=== PATIENT | male | born 1960 | race Hispanic/Latino ===

== ENCOUNTER 2022-08-19 14:05 | Emergency (ER) | payer OTHER, SELFPAY ==
[2022-08-19] MEDS ORDERED: METHYLPREDNISOLONE 125 MG INJ ONE (14:39)
[2022-08-19] MEDS ORDERED: NA CHLORIDE 0.9% 1,000 ML ONE (14:39)
[2022-08-19] MEDS ORDERED: FLUORESCEIN SODIUM 1 MG/WRAP ONE (15:24)
[2022-08-19] MEDS ORDERED: TETRACAINE HCL 0.5% 4ML OPTH ONE (15:25)
--- NOTE | 2022-08-19 15:49 | ER ---
Nurse's Notes [facility] Name: Joe Flores Age: 61 yrs Sex: Male : 1960 Arrival Date: 08/19/2022 Time: 14:05 Bed 18 Private MD: Desmond Butler Diagnosis: Conjunctival hemorrhage, right eye Presentation: 08/19 14:34 Chief complaint: Patient states: right eye redness. Pt states that he poked his eye cm10 with a tree branch Friday. Pt denies any blurred vision to that eye. Coronavirus screen: Vaccine status: Patient reports receiving the 2nd dose of the covid vaccine. Ebola Screen: No symptoms or risks identified at this time. Initial Sepsis Screen: Does the patient meet any 2 criteria? No. Patient's initial sepsis screen is negative. Does the patient have a suspected source of infection? No. Patient's initial sepsis screen is negative. Risk Assessment: Do you want to hurt yourself or someone else? Patient reports no desire to harm self or others. Onset of symptoms was August 19, 2022. 14:34 Method Of Arrival: Ambulatory 10 14:34 Acuity: EARNESTINE 4 cm10 Triage Assessment: 15:00 General: Appears in no apparent distress. uncomfortable, Behavior is calm, cooperative, eh3 appropriate for age. Pain: Complains of pain in right eye. Neuro: Level of Consciousness is awake, alert, obeys commands, Oriented to person, place, time, situation. Cardiovascular: Capillary refill < 3 seconds Patient's skin is warm and dry. Respiratory: Airway is patent Respiratory effort is even, unlabored, Respiratory pattern is regular, symmetrical. GI: Abdomen is round non-distended. Derm: Skin is intact, is healthy with good turgor. Musculoskeletal: Circulation, motion, and sensation intact. Historical: - Allergies: 14:36 No Known Allergies; cm10 - Home Meds: 14:36 None [Active]; cm10 - PMHx: 14:36 None; cm10 - PSHx: 14:36 None; cm10 - Immunization history:: Adult Immunizations unknown. - Social history:: Smoking status: Patient denies any tobacco usage or history of. Screenin:02 [facility] ED Fall Risk Assessment (Adult) Score/Fall Risk Level 0 - 2 = Low Risk. Abuse eh3 screen: Denies threats or abuse. Denies injuries from another. Nutritional screening: No deficits noted. Tuberculosis screening: No symptoms or risk factors identified. Vital Signs: 14:34 BP 118 / 72; Pulse 67; Resp 16; Temp 97.7(TE); Pulse Ox 99% ; Weight 79.83 kg; Height 5 cm10 ft. 3 in. ; Pain 0/10; 14:34 Body Mass Index 31.18 (79.83 kg, 160.02 cm) cm10 14:34 Pain Scale: Adult cm10 ED Course: 14:08 Patient arrived in ED. mr 14:08 Desmond Butler DO is Private Physician. mr 14:15 Angelica Hart [facility]C [facility] sb4 14:15 Sahil Covington MD is Attending Physician. sb4 14:36 Triage completed. cm10 14:36 Arm band placed on Patient placed. cm10 15:00 Patient has correct armband on for positive identification. Provided Education on: N/A. eh3 15:02 Liyah Gasca RN is Primary Nurse. eh3 15:48 Alexandro Santa MD is Referral Physician. sb4 16:03 No provider procedures requiring assistance completed. Patient did not have IV access eh3 during this emergency room visit. Administered Medications: 15:02 Drug: Tetracaine Ophthalmic Drops 0.5 % 1 drops Route: Ophthalmic; Site: right eye; eh3 16:02 Follow up: Response: No adverse reaction eh3 15:02 Drug: Fluorescein Ophthalmic Strip 1 strip Route: Ophthalmic; Site: right eye; eh3 16:02 Follow up: Response: No adverse reaction eh3 Medication: 16:03 VIS not applicable for this client. eh3 Outcome: 15:48 Discharge ordered by . sb4 16:04 Discharged to home ambulatory, with family. eh3 16:04 Condition: stable 16:04 Discharge instructions given to patient, family, Instructed on discharge instructions, follow up and referral plans. medication usage, Demonstrated understanding of instructions, follow-up care, medications, Prescriptions given X 1. 16:04 Patient left the ED. eh3 Signatures: Sendy Newman mr Liyah Gasca, REGULO RN eh3 Angelica Hart PA-C PA-C sb4 Connie Flores RN RN 10
--- NOTE | 2022-08-19 15:49 | EDPHYS ---
Physician Documentation [facility] Name: Joe Flores Age: 61 yrs Sex: Male : 1960 Arrival Date: 08/19/2022 Time: 14:05 Bed 18 Private MD: Desmond Butler ED Physician Sahil Covington HPI: 08/19 15:52 This 61 yrs old Male presents to ER via Ambulatory with complaints of Redness sb4 of Eye. 15:52 The patient is experiencing redness, tearing, The patient sustained tree branch hit his sb4 right eye, to the right eye, caused by tree branch. Onset: The symptoms/episode began/occurred 2 day(s) ago. Associated signs and symptoms: Pertinent positives: None. Pertinent negatives: blurry vision, pain, dizziness. Patient does not utilize any form of vision correction. . Historical: - Allergies: 14:36 No Known Allergies; cm10 - Home Meds: 14:36 None [Active]; cm10 - PMHx: 14:36 None; cm10 - PSHx: 14:36 None; cm10 - Immunization history:: Adult Immunizations unknown. - Social history:: Smoking status: Patient denies any tobacco usage or history of. ROS: 15:52 Constitutional: Negative for fever, chills, and weight loss. sb4 15:52 Eyes: Positive for redness, tearing, Negative for blurry vision, discharge, foreign body sensation, itching, pain, photophobia, swelling, vision loss, visual disturbance. 15:52 All other systems are negative. Exam: 15:52 Visual Acuity: Visual acuity is within normal limits. sb4 15:52 Constitutional: This is a well developed, well nourished patient who is awake, alert, and in no acute distress. Skin: Warm, dry with normal turgor. Normal color with no rashes, no lesions, and no evidence of cellulitis. 15:52 Eyes: Periorbital structures: appear normal, Pupils: equal, round, and reactive to light and accomodation, Extraocular movements: intact throughout, Conjunctiva: subconjunctival hemorrhage(s), seen in the right eye, Corneas: are normal, no evidence of abrasion, no foreign body, Sclera: no appreciated abnormality, Anterior chamber: normal, no hyphema, on appreciated narrow angle closure, Lids and lashes: appear normal, Visual ohara: are intact. Vital Signs: 14:34 BP 118 / 72; Pulse 67; Resp 16; Temp 97.7(TE); Pulse Ox 99% ; Weight 79.83 kg; Height 5 cm10 ft. 3 in. ; Pain 0/10; 14:34 Body Mass Index 31.18 (79.83 kg, 160.02 cm) cm10 14:34 Pain Scale: Adult cm10 Procedures: 15:52 Eye Exam: Fluorescein. sb4 MDM: 14:17 Patient medically screened. sb4 15:52 Differential diagnosis: Corneal abrasion of right eye. Corneal ulcer of right eye. sb4 Foreign body in right eye. Acute iritis of right eye. Acute glaucoma in right eye. Infectious conjunctivitis in right eye. Ultraviolet keratitis in right eye. Data reviewed: vital signs, nurses notes, I have discussed the patient's presentation/case with the attending Emergency Department Physician; and as a result, I will discharge patient. I considered the following discharge prescriptions or medication management in the emergency department Antibiotics: At this time antibiotics are not recommended. Counseling: I had a detailed discussion with the patient and/or guardian regarding: the historical points, exam findings, and any diagnostic results supporting the discharge/admit diagnosis, the need for outpatient follow up, an opthalmologist. 15:56 ED course: I numbed the eye with tetracaine and did a fluorescein exam. No corneal sb4 abrasion or ulcer noted. EOMs intact. No painful eye movements. Visual acuity intact. Administered Medications: 15:02 Drug: Tetracaine Ophthalmic Drops 0.5 % 1 drops Route: Ophthalmic; Site: right eye; 3 16:02 Follow up: Response: No adverse reaction 3 15:02 Drug: Fluorescein Ophthalmic Strip 1 strip Route: Ophthalmic; Site: right eye; eh3 16:02 Follow up: Response: No adverse reaction 3 Disposition Summary: 08/19/22 15:48 Discharge Ordered Location: Home sb4 Problem: new sb4 Symptoms: are unchanged sb4 Condition: Stable sb4 Diagnosis - Conjunctival hemorrhage, right eye sb4 Followup: sb4 - With: Alexandro Santa MD - When: 2 - 3 days - Reason: Wound Recheck, Further diagnostic work-up Discharge Instructions: - Discharge Summary Sheet sb4 - Subconjunctival Hemorrhage sb4 Forms: - Medication Reconciliation Form sb4 - Thank You Letter sb4 - Antibiotic Education sb4 - Prescription Opioid Use sb4 - [email or web address] sb4 Prescriptions: - Acular 0.5 % Ophthalmic Drops - instill 1 drop by OPHTHALMIC route every 6 hours into affected eye(s); 5 sb4 milliliter; Refills: 0, Product Selection Permitted Signatures: Liyah Gasca RN RN eh3 Angelica Hart PA-C PA-C sb4 Connie Flores RN RN cm10 Corrections: (The following items were deleted from the chart) 15:49 15:48 Unspecified acute conjunctivitis, right eye sb4 sb4 15:57 15:52 Eye Exam: Fluorescein, sb4 sb4
[2022-08-19 17:22] VITALS: BP 118/72; TEMP 97.7; O2SAT 99
== END 2022-08-19 16:04 | disposition home or self-care (01) ==
LOC: ER 14:05
DX: H11.31 Conjunctival hemorrhage, right eye (principal)
CPT/HCPCS: 99283; J2930; J7030